=== PATIENT | female | born 1965 | race Caucasian/White ===

== ENCOUNTER → 2020-12-22 | Outpatient (CLI) | payer OTHER ==
[2020-12-22 09:35] LABS: BASOPHILS % (AUTO) 1 % (0-1); EOSINOPHILS % (AUTO) 2 % (1-7); LYMPHOCYTES % (AUTO) 8 % (22-44); MEAN CORPUSCULAR HEMOGLOBIN 24.7 pg (27.0-34.8); MEAN CORPUSCULAR HGB CONC 33.1 g/dL (32.4-35.8); MONOCYTES % (AUTO) 4 % (2-9); NEUTROPHILS % (AUTO) 85 % (42-75); PLATELET COUNT 472 x10^3/uL (130-400); RED BLOOD COUNT 4.46 x10^6/uL (3.82-5.3); RED CELL DISTRIBUTION WIDTH 16.9 % (9.6-15.2)
[2020-12-22 09:40] LABS: MD NO
[2020-12-22 09:45] LABS: ALANINE AMINOTRANSFERASE 14 U/L (12-78); ALBUMIN 3.2 g/dL (3.4-5.0); ANION GAP 6 mmol/L (5-15); CALCIUM 9.6 mg/dL (8.5-10.1); CHLORIDE 104 mmol/L (98-107); CREATININE 0.77 mg/dL (0.55-1.02)
[2020-12-22 09:46] LABS: INTERNATIONAL NORMALIZED RATIO 0.95 (0.93-1.1); PROTHROMBIN TIME 10.2 Seconds (9.6-11.5)
[2020-12-22 09:47] LABS: ALKALINE PHOSPHATASE 80 U/L (45-117); BILIRUBIN,TOTAL 0.6 mg/dL (0.2-1.0); TOTAL PROTEIN 7.5 g/dL (6.4-8.2)
== END | disposition home or self-care (01) ==
LOC: STAR 07:53
PROVIDERS: ATTEND Specialist
DX: Z01.818 Encounter for other preprocedural examination (principal); N92.4 Excessive bleeding in the premenopausal period; R19.00 Intra-abdominal and pelvic swelling, mass and lump, unspecified site; Z20.822 Contact with and (suspected) exposure to COVID-19
CPT/HCPCS: 36415; 71046; 80053; 85025; 85610; 85730; 86304; 93005; U0003; U0005

== ENCOUNTER 2020-12-26 09:26 | Day surgery (SDC) | payer OTHER ==
[~2020-12-26] VITALS: Ht 167.6 cm; Wt 80.6 kg
[2020-12-26 10:29] VITALS: BP 116/73
[2020-12-26] MEDS ORDERED: CHLORHEXIDINE 15 ML UDC PO ONE (10:30)
[2020-12-26] MEDS ORDERED: CEFOTETAN PMX 2GM/50ML 50 ML IVPB ONE (10:30)
[2020-12-26] MEDS ORDERED: LACTATED RINGERS 1,000 ML IV SCH (10:30)
[2020-12-26] MEDS ORDERED: MIDAZOLAM 1 MG/ML, 2ML ONE (12:01)
[2020-12-26] MEDS ORDERED: PROPOFOL 50 ML ONE (12:01)
[2020-12-26] MEDS ORDERED: ONDANSETRON 2MG/ML, 2ML ONE (12:01)
[2020-12-26] MEDS ORDERED: KETOROLAC 30 MG/1 ML ONE (12:01)
[2020-12-26] MEDS ORDERED: FENTANYL PF 250 MCG/5ML ONE (12:01)
[2020-12-26] MEDS ORDERED: PROPOFOL 10 MG/ML, 20ML ONE (12:01)
[2020-12-26] MEDS ORDERED: DEXAMETHASONE 4 MG/ML, 1ML ONE (12:01)
[2020-12-26] MEDS ORDERED: DIAZEPAM 5 MG/ML, 2ML IVPush PRN (13:00)
[2020-12-26] MEDS ORDERED: DIPHENHYDRAMINE 50 MG/ML, 1ML IVPush PRN (13:00)
[2020-12-26] MEDS ORDERED: EPHEDRINE 50 MG/ML, 1ML IM PRN (13:00)
[2020-12-26] MEDS ORDERED: morphine SULFATE 10 MG/ML, 1ML IVPush PRN (13:00)
[2020-12-26] MEDS ORDERED: FENTANYL PF 100 MCG/2ML IV PRN (13:00)
[2020-12-26] MEDS ORDERED: MEPERIDINE/PF 25MG/0.5ML IVPush PRN (13:00)
[2020-12-26] MEDS ORDERED: MIDAZOLAM 1 MG/ML, 2ML IV PRN (13:00)
[2020-12-26] MEDS ORDERED: PROMETHAZINE 25 MG/ML, 1ML IVPush PRN (13:00)
[2020-12-26] MEDS ORDERED: ONDANSETRON 2MG/ML, 2ML IVPush PRN (13:00)
[2020-12-26] MEDS ORDERED: EPHEDRINE 50 MG/ML, 1ML IVPush PRN (13:00)
[2020-12-26] MEDS ORDERED: ACETAMINOPHEN 325 MG TABLET PO PRN (13:00)
[2020-12-26] MEDS ORDERED: LABETALOL 5MG/ML, 20ML IV PRN (13:00)
[2020-12-26] MEDS ORDERED: OXYcodone 5 MG/5 ML ORAL.SOL UDC PO PRN (13:00)
[2020-12-26] MEDS ORDERED: ACETAMINOPHEN 650 MG/20.3 ML UDC ONE (13:35)
== END 2020-12-26 14:50 | disposition home or self-care (01) ==
LOC: OUT 09:26
PROVIDERS: ATTEND Specialist
DX: N93.9 Abnormal uterine and vaginal bleeding, unspecified (principal); Z79.899 Other long term (current) drug therapy; Z98.51 Tubal ligation status; Z80.8 Family history of malignant neoplasm of other organs or systems
CPT/HCPCS: 57500; 88305; J1100; J1885; J2250; J2405; J2704; J3010; J7120

== ENCOUNTER 2021-01-08 15:03 | Inpatient (IN) | payer OTHER ==
[~2021-01-08] VITALS: Ht 167.6 cm; Wt 79.3 kg
[2021-01-08 15:41] VITALS: BP 129/80
[2021-01-08] MEDS ORDERED: ONDANSETRON 2MG/ML, 2ML IVPush PRN (17:00)
[2021-01-08] MEDS ORDERED: GOLYTELY 4,000ML ORAL.SOL PO ONE (17:00)
[2021-01-08] MEDS: MORPHINE SULFATE 4 MG/ML, 1ML IVPush PRN (17:23)
[2021-01-08 17:33] LABS: BASOPHILS % (AUTO) 0 % (0-1); EOSINOPHILS % (AUTO) 2 % (1-7); LYMPHOCYTES % (AUTO) 10 % (22-44); MEAN CORPUSCULAR HEMOGLOBIN 23.8 pg (27.0-34.8); MEAN CORPUSCULAR HGB CONC 32.8 g/dL (32.4-35.8); MEAN PLATELET VOLUME 6.4 fL (7.4-10.4); MONOCYTES % (AUTO) 6 % (2-9); NEUTROPHILS % (AUTO) 82 % (42-75); PLATELET COUNT 459 x10^3/uL (130-400); RED BLOOD COUNT 3.69 x10^6/uL (3.82-5.3); RED CELL DISTRIBUTION WIDTH 17.6 % (9.6-15.2)
[2021-01-08 17:40] LABS: ALANINE AMINOTRANSFERASE 15 U/L (12-78); ALBUMIN 2.7 g/dL (3.4-5.0); ANION GAP 8 mmol/L (5-15); CALCIUM 10.3 mg/dL (8.5-10.1); CHLORIDE 108 mmol/L (98-107); CREATININE 0.97 mg/dL (0.55-1.02); INTERNATIONAL NORMALIZED RATIO 0.99 (0.93-1.1); PROTHROMBIN TIME 10.6 Seconds (9.6-11.5)
[2021-01-08 17:42] LABS: ALKALINE PHOSPHATASE 93 U/L (45-117); BILIRUBIN,TOTAL 0.3 mg/dL (0.2-1.0)
[2021-01-08 18:30] VITALS: BP 118/77
[2021-01-08 18:36] LABS: ANISOCYTOSIS 1+; MICROCYTOSIS 1+
[2021-01-08 18:40] LABS: <PLATELET ESTIMATE> INCREASED
[2021-01-08 18:41] LABS: SMALL PLATELETS 1+
[2021-01-08] MEDS: POTASSIUM CHLORIDE 20 MEQ in SODIUM CHLORIDE 0.45% 1,000 ML IV SCH (23:31)
[2021-01-09] MEDS: MORPHINE SULFATE 4 MG/ML, 1ML IVPush PRN (01:39)
[2021-01-09 01:53] VITALS: BP 104/67
[2021-01-09 06:37] VITALS: BP 116/77
[2021-01-09] MEDS: POTASSIUM CHLORIDE 20 MEQ in SODIUM CHLORIDE 0.45% 1,000 ML IV SCH (08:47)
[2021-01-09] MEDS ORDERED: CHLORHEXIDINE 15 ML UDC ONE (12:03)
[2021-01-09] MEDS ORDERED: CHLORHEXIDINE 15 ML UDC PO ONE (12:30)
[2021-01-09] MEDS ORDERED: FENTANYL PF 100 MCG/2ML ONE ×5 (12:48→15:26)
[2021-01-09] MEDS ORDERED: MIDAZOLAM 1 MG/ML, 2ML ONE (12:48)
[2021-01-09] MEDS ORDERED: DEXAMETHASONE 4 MG/ML, 1ML ONE (12:52)
[2021-01-09] MEDS ORDERED: ALBUTEROL SULFATE 200 PUFFS/8.5 GR INH ONE (12:52)
[2021-01-09] MEDS ORDERED: PHENYLEPHRINE 10 MG/ML ONE (12:52)
[2021-01-09] MEDS ORDERED: ALBUMIN HUMAN 5% 500 ML ONE (13:53)
[2021-01-09] MEDS ORDERED: HEPARIN 1,000 UNITS/ML, 10ML ONE (13:54)
[2021-01-09] MEDS ORDERED: CEFAZOLIN 1,000 MG ONE ×2 (14:09)
[2021-01-09] MEDS ORDERED: PROPOFOL 10 MG/ML, 20ML ONE (14:09)
[2021-01-09] MEDS ORDERED: ROCURONIUM 10MG/ML,5ML ONE ×2 (14:09)
[2021-01-09] MEDS ORDERED: OXYcodone 5 MG/5 ML ORAL.SOL UDC PO PRN (14:30)
[2021-01-09] MEDS ORDERED: FENTANYL PF 100 MCG/2ML IV PRN (14:30)
[2021-01-09] MEDS ORDERED: LABETALOL 5MG/ML, 20ML IV PRN (14:30)
[2021-01-09] MEDS ORDERED: PROMETHAZINE 25 MG/ML, 1ML IVPush PRN (14:30)
[2021-01-09] MEDS ORDERED: ONDANSETRON 2MG/ML, 2ML IVPush PRN ×2 (14:30→16:00)
[2021-01-09] MEDS ORDERED: HYDROmorphone 1 MG/ML, 1ML INJ IVPush PRN (14:30)
[2021-01-09] MEDS ORDERED: hydrALAzine 20 MG/ML, 1ML IV PRN (14:30)
[2021-01-09] MEDS ORDERED: MEPERIDINE/PF 25MG/0.5ML IVPush PRN (14:30)
[2021-01-09] MEDS ORDERED: ONDANSETRON 2MG/ML, 2ML ONE ×2 (14:41→15:25)
[2021-01-09] MEDS ORDERED: OXYcodone 5 MG/5 ML ORAL.SOL UDC ONE (15:26)
[2021-01-09 19:19] VITALS: BP 97/62
[2021-01-10] MEDS: POTASSIUM CHLORIDE 20 MEQ in SODIUM CHLORIDE 0.45% 1,000 ML IV SCH ×3 (00:35→21:35)
[2021-01-10 02:03] VITALS: BP 92/59
[2021-01-10 06:59] VITALS: BP 90/62
[2021-01-10] MEDS ORDERED: PROCHLORPERAZINE 5 MG/ML, 2ML IVPush PRN (09:00)
[2021-01-10] MEDS ORDERED: DIPHENHYDRAMINE 50 MG/ML, 1ML IVPush PRN (09:00)
[2021-01-10] MEDS ORDERED: ACETAMINOPHEN 325 MG TABLET PO PRN (09:00)
[2021-01-10 09:34] LABS: BASOPHILS % (AUTO) 0 % (0-1); EOSINOPHILS % (AUTO) 0 % (1-7); LYMPHOCYTES % (AUTO) 4 % (22-44); MEAN CORPUSCULAR HEMOGLOBIN 25.5 pg (27.0-34.8); MEAN CORPUSCULAR HGB CONC 33.8 g/dL (32.4-35.8); MEAN PLATELET VOLUME 6.5 fL (7.4-10.4); MONOCYTES % (AUTO) 4 % (2-9); NEUTROPHILS % (AUTO) 92 % (42-75); PLATELET COUNT 389 x10^3/uL (130-400); RED BLOOD COUNT 3.69 x10^6/uL (3.82-5.3); RED CELL DISTRIBUTION WIDTH 18.2 % (9.6-15.2)
[2021-01-10 09:45] LABS: ANION GAP 8 mmol/L (5-15); CALCIUM 7.9 mg/dL (8.5-10.1); CHLORIDE 109 mmol/L (98-107); CREATININE 0.73 mg/dL (0.55-1.02)
[2021-01-10 13:55] VITALS: BP 99/61
[2021-01-10 18:42] VITALS: BP 99/56
[2021-01-10] MEDS: FAMOTIDINE 20 MG/2 ML IVPush SCH (20:15)
[2021-01-11 00:54] VITALS: BP 91/55
[2021-01-11 07:24] VITALS: BP 99/64
[2021-01-11] MEDS: FAMOTIDINE 20 MG/2 ML IVPush SCH ×2 (08:38→20:25)
[2021-01-11] MEDS: POTASSIUM CHLORIDE 20 MEQ in SODIUM CHLORIDE 0.45% 1,000 ML IV SCH ×2 (08:38→19:28)
[2021-01-11 13:10] VITALS: BP 95/59
[2021-01-11 18:47] VITALS: BP 93/63
[2021-01-12 01:01] VITALS: BP 99/61
[2021-01-12] MEDS: POTASSIUM CHLORIDE 20 MEQ in SODIUM CHLORIDE 0.45% 1,000 ML IV SCH ×2 (04:34→15:43)
[2021-01-12 06:48] VITALS: BP 100/65
[2021-01-12] MEDS: FAMOTIDINE 20 MG/2 ML IVPush SCH ×2 (08:55→20:18)
[2021-01-12 13:29] VITALS: BP 96/61
[2021-01-12 19:37] VITALS: BP 100/62
[2021-01-13 00:42] VITALS: BP 103/64
[2021-01-13] MEDS: POTASSIUM CHLORIDE 20 MEQ in SODIUM CHLORIDE 0.45% 1,000 ML IV SCH ×3 (00:48→22:50)
[2021-01-13 05:19] LABS: BASOPHILS % (AUTO) 0 % (0-1); EOSINOPHILS % (AUTO) 2 % (1-7); LYMPHOCYTES % (AUTO) 11 % (22-44); MEAN CORPUSCULAR HEMOGLOBIN 25.6 pg (27.0-34.8); MEAN CORPUSCULAR HGB CONC 33.2 g/dL (32.4-35.8); MEAN PLATELET VOLUME 6.7 fL (7.4-10.4); MONOCYTES % (AUTO) 7 % (2-9); NEUTROPHILS % (AUTO) 80 % (42-75); PLATELET COUNT 294 x10^3/uL (130-400); RED BLOOD COUNT 2.93 x10^6/uL (3.82-5.3); RED CELL DISTRIBUTION WIDTH 18.5 % (9.6-15.2)
[2021-01-13 05:25] LABS: ANION GAP 4 mmol/L (5-15); CALCIUM 7.6 mg/dL (8.5-10.1); CHLORIDE 108 mmol/L (98-107)
[2021-01-13 05:26] LABS: CREATININE 0.48 mg/dL (0.55-1.02)
[2021-01-13 06:55] VITALS: BP 102/66
[2021-01-13] MEDS: FAMOTIDINE 20 MG/2 ML IVPush SCH ×2 (09:18→20:59)
[2021-01-13 12:15] VITALS: BP 97/64
[2021-01-13 19:20] VITALS: BP 113/68
[2021-01-14 03:30] VITALS: BP 107/63
[2021-01-14 05:17] LABS: BASOPHILS % (AUTO) 0 % (0-1); EOSINOPHILS % (AUTO) 1 % (1-7); LYMPHOCYTES % (AUTO) 7 % (22-44); MEAN CORPUSCULAR HEMOGLOBIN 25.7 pg (27.0-34.8); MEAN CORPUSCULAR HGB CONC 33.6 g/dL (32.4-35.8); MEAN PLATELET VOLUME 6.9 fL (7.4-10.4); MONOCYTES % (AUTO) 6 % (2-9); NEUTROPHILS % (AUTO) 86 % (42-75); PLATELET COUNT 327 x10^3/uL (130-400); RED BLOOD COUNT 3.23 x10^6/uL (3.82-5.3); RED CELL DISTRIBUTION WIDTH 18.6 % (9.6-15.2)
[2021-01-14 05:24] LABS: ANION GAP 6 mmol/L (5-15); CALCIUM 7.7 mg/dL (8.5-10.1); CHLORIDE 103 mmol/L (98-107)
[2021-01-14 05:25] LABS: CREATININE 0.45 mg/dL (0.55-1.02)
[2021-01-14 07:15] VITALS: BP 103/65
[2021-01-14] MEDS: FAMOTIDINE 20 MG/2 ML IVPush SCH ×2 (08:20→20:57)
[2021-01-14] MEDS: POTASSIUM CHLORIDE 20 MEQ in SODIUM CHLORIDE 0.45% 1,000 ML IV SCH (09:54)
[2021-01-14] MEDS ORDERED: OXYcodone/APAP 5/325MG TABLET PO PRN (11:30)
[2021-01-14] MEDS: KETOROLAC 30 MG/1 ML IVPush SCH ×3 (12:40→23:37)
[2021-01-14 12:47] VITALS: BP 126/77
[2021-01-14] MEDS ORDERED: POTASSIUM CHLORIDE 20 MEQ in SODIUM CHLORIDE 0.45% 1,000 ML IV SCH (17:00)
[2021-01-14 18:19] VITALS: BP 110/57
[2021-01-15 01:09] VITALS: BP 106/69
[2021-01-15] MEDS: KETOROLAC 30 MG/1 ML IVPush SCH (05:08)
[2021-01-15] MEDS ORDERED: KETOROLAC 30 MG/1 ML IVPush PRN (08:00)
[2021-01-15 08:30] VITALS: BP 109/66
[2021-01-15] MEDS: FAMOTIDINE 20 MG/2 ML IVPush SCH (09:10)
[2021-01-15 13:55] VITALS: BP 113/68
[2021-01-15] MEDS ORDERED: OXYC1TAB14 PO (14:06)
== END 2021-01-15 18:38 | disposition home or self-care (01) | DRG 737 ==
LOC: 4NW 15:11
PROVIDERS: ADMIT Specialist; ATTEND Specialist
PROC: 0UT20ZZ Resection of Bilateral Ovaries, Open Approach (ICD-10-PCS; 2021-01-09)
PROC: 0UT70ZZ Resection of Bilateral Fallopian Tubes, Open Approach (ICD-10-PCS; 2021-01-09)
PROC: 30233N1 Transfusion of Nonautologous Red Blood Cells into Peripheral Vein, Percutaneous Approach (ICD-10-PCS; 2021-01-09)
PROC: 0DBU0ZZ Excision of Omentum, Open Approach (ICD-10-PCS; 2021-01-09)
PROC: 0UT90ZZ Resection of Uterus, Open Approach (ICD-10-PCS; principal; 2021-01-09 13:30)
DX: C56.1 Malignant neoplasm of right ovary (principal); R18.8 Other ascites; C54.1 Malignant neoplasm of endometrium; D64.9 Anemia, unspecified; Z85.6 Personal history of leukemia; Z20.822 Contact with and (suspected) exposure to COVID-19; C56.2 Malignant neoplasm of left ovary
CPT/HCPCS: 36415; 71045; 80048; 80053; 83735; 85025; 85610; 85730; 86850; 86900; 86923; 87635; 88112; 88305; 88307; 88331; 93005; G0378; J0690; J1100; J1644; J1885; J2250; J2270; J2405; J2704; J3010; J3480; P9045; C1765; J2370; P9016

== ENCOUNTER 2021-02-14 09:07 | Inpatient (IN) | payer OTHER ==
[~2021-02-14] VITALS: Ht 167.6 cm; Wt 79.0 kg
[~2021-02-14 09:07] MED LIST: OXYC1TAB14 PO
[2021-02-14] MEDS ORDERED: OMNIPAQUE 350 MG/ML, 100ML BOTTLE ONE (11:23)
[2021-02-14] MEDS ORDERED: ONDANSETRON ODT 4 MG PO ONE (18:00)
[2021-02-14] MEDS ORDERED: OXYcodone/APAP 5/325MG TABLET PO PRN ×2 (18:00→19:30)
[2021-02-14 19:00] VITALS: BP 105/65
[2021-02-14] MEDS ORDERED: PLEASE ENTER HEIGHT AND WEIGHT MC SCH (19:00)
[2021-02-14] MEDS ORDERED: ACETAMINOPHEN 325 MG TABLET PO PRN (19:30)
[2021-02-14] MEDS: SODIUM CHLORIDE 0.45% 1,000 ML IV SCH (20:21)
[2021-02-14 21:09] LABS: INTERNATIONAL NORMALIZED RATIO 1.15 (0.93-1.1); PROTHROMBIN TIME 12.2 Seconds (9.6-11.5)
[2021-02-15 01:10] VITALS: BP 103/67
[2021-02-15] MEDS: SODIUM CHLORIDE 0.45% 1,000 ML IV SCH ×2 (05:09→14:17)
[2021-02-15 07:54] VITALS: BP 107/68
[2021-02-15] MEDS ORDERED: LIDOCAINE 1%, 20ML ONE (14:30)
[2021-02-15] MEDS ORDERED: MIDAZOLAM 1 MG/ML, 5ML ONE ×2 (14:34)
[2021-02-15] MEDS ORDERED: FLUMAZENIL 0.1 MG/1 ML, 5ML ONE (14:34)
[2021-02-15] MEDS ORDERED: FENTANYL PF 100 MCG/2ML ONE (14:34)
[2021-02-15] MEDS ORDERED: NALOXONE 1 MG/ML, 2ML ONE (14:35)
[2021-02-15 16:00] VITALS: BP 98/63
[2021-02-15 18:41] VITALS: BP 97/61
[2021-02-15] MEDS ORDERED: ONDANSETRON 2MG/ML, 2ML IVPush PRN (19:30)
[2021-02-15] MEDS ORDERED: MORPHINE SULFATE 4 MG/ML, 1ML IVPush PRN (19:30)
[2021-02-15] MEDS: IBUPROFEN 200 MG TABLET PO PRN (20:00)
[2021-02-15] MEDS ORDERED: MAGNESIUM HYDROXIDE 8%, 30ML UDC PO PRN (20:30)
[2021-02-15] MEDS: PIPERACILLIN/TAZO 3.375 GM in DEXTROSE 5% 50 ML IV SCH (20:54)
[2021-02-16 01:30] VITALS: BP 99/64
[2021-02-16] MEDS: SODIUM CHLORIDE 0.45% 1,000 ML IV SCH ×2 (01:40→17:46)
[2021-02-16] MEDS: PIPERACILLIN/TAZO 3.375 GM in DEXTROSE 5% 50 ML IV SCH ×4 (03:07→20:31)
[2021-02-16 05:55] LABS: BASOPHILS % (AUTO) 1 % (0-1); EOSINOPHILS % (AUTO) 1 % (1-7); LYMPHOCYTES % (AUTO) 20 % (22-44); MEAN CORPUSCULAR HEMOGLOBIN 24.2 pg (27.0-34.8); MEAN CORPUSCULAR HGB CONC 31.6 g/dL (32.4-35.8); MEAN PLATELET VOLUME 6.3 fL (7.4-10.4); MONOCYTES % (AUTO) 5 % (2-9); NEUTROPHILS % (AUTO) 74 % (42-75); PLATELET COUNT 281 x10^3/uL (130-400); RED BLOOD COUNT 2.56 x10^6/uL (3.82-5.3); RED CELL DISTRIBUTION WIDTH 24.9 % (9.6-15.2)
[2021-02-16 05:57] LABS: ALBUMIN 1.9 g/dL (3.4-5.0); ANION GAP 3 mmol/L (5-15); CALCIUM 7.8 mg/dL (8.5-10.1); CHLORIDE 108 mmol/L (98-107)
[2021-02-16 06:02] LABS: ALANINE AMINOTRANSFERASE 8 U/L (12-78); ALKALINE PHOSPHATASE 68 U/L (45-117); BILIRUBIN,TOTAL 0.9 mg/dL (0.2-1.0); CREATININE 0.55 mg/dL (0.55-1.02); TOTAL PROTEIN 5.7 g/dL (6.4-8.2)
[2021-02-16 06:33] LABS: ANISOCYTOSIS 2+
[2021-02-16 06:34] LABS: <PLATELET ESTIMATE> ADEQUATE; <PLT MORPHOLOGY> NORMAL PLT MORPH; OVALOCYTES 1+; POLYCHROMASIA 1+
[2021-02-16 06:35] LABS: HYPOCHROMIA 1+
[2021-02-16 06:36] LABS: MICROCYTOSIS 1+
[2021-02-16] MEDS ORDERED: POTASSIUM CHLORIDE 40 MEQ in SODIUM CHLORIDE 0.9% 500 ML IV ONE (07:00)
[2021-02-16 07:27] VITALS: BP 100/63
[2021-02-16 13:39] VITALS: BP 95/58
[2021-02-16] MEDS ORDERED: DIPHENHYDRAMINE 25 MG CAPSULE PO ONE (17:00)
[2021-02-16] MEDS ORDERED: ACETAMINOPHEN 325 MG TABLET PO ONE (17:00)
[2021-02-16 20:09] VITALS: BP 104/67
[2021-02-16 21:46] VITALS: BP 112/67
[2021-02-16 22:13] VITALS: BP 103/60
[2021-02-17] VITALS (10 sets, daily range): BP systolic 108–121; BP diastolic 60–78
[2021-02-17] MEDS: PIPERACILLIN/TAZO 3.375 GM in DEXTROSE 5% 50 ML IV SCH ×4 (03:31→20:47)
[2021-02-17 05:49] LABS: ANION GAP 3 mmol/L (5-15); CALCIUM 7.9 mg/dL (8.5-10.1); CHLORIDE 108 mmol/L (98-107); CREATININE 0.52 mg/dL (0.55-1.02)
[2021-02-17 05:56] LABS: BASOPHILS % (AUTO) 1 % (0-1); EOSINOPHILS % (AUTO) 1 % (1-7); LYMPHOCYTES % (AUTO) 23 % (22-44); MEAN CORPUSCULAR HEMOGLOBIN 25.8 pg (27.0-34.8); MEAN CORPUSCULAR HGB CONC 31.7 g/dL (32.4-35.8); MEAN PLATELET VOLUME 6.4 fL (7.4-10.4); MONOCYTES % (AUTO) 6 % (2-9); NEUTROPHILS % (AUTO) 70 % (42-75); PLATELET COUNT 277 x10^3/uL (130-400); RED BLOOD COUNT 3.52 x10^6/uL (3.82-5.3); RED CELL DISTRIBUTION WIDTH 23.2 % (9.6-15.2)
[2021-02-17 06:46] LABS: POLYCHROMASIA 1+
[2021-02-17 06:48] LABS: ANISOCYTOSIS 2+
[2021-02-17 06:49] LABS: <PLATELET ESTIMATE> ADEQUATE; <PLT MORPHOLOGY> NORMAL PLT MORPH; OVALOCYTES 1+
[2021-02-17] MEDS: SODIUM CHLORIDE 0.45% 1,000 ML IV SCH ×2 (11:24→20:47)
[2021-02-18 00:37] VITALS: BP 117/67
[2021-02-18] MEDS: PIPERACILLIN/TAZO 3.375 GM in DEXTROSE 5% 50 ML IV SCH ×4 (03:09→21:09)
[2021-02-18 05:41] LABS: BASOPHILS % (AUTO) 1 % (0-1); EOSINOPHILS % (AUTO) 2 % (1-7); LYMPHOCYTES % (AUTO) 31 % (22-44); MEAN CORPUSCULAR HEMOGLOBIN 26.4 pg (27.0-34.8); MEAN CORPUSCULAR HGB CONC 32.6 g/dL (32.4-35.8); MEAN PLATELET VOLUME 6.5 fL (7.4-10.4); MONOCYTES % (AUTO) 6 % (2-9); NEUTROPHILS % (AUTO) 60 % (42-75); PLATELET COUNT 262 x10^3/uL (130-400); RED BLOOD COUNT 3.28 x10^6/uL (3.82-5.3)
[2021-02-18 07:46] VITALS: BP 110/71
[2021-02-18] MEDS: SODIUM CHLORIDE 0.45% 1,000 ML IV SCH ×2 (09:07→17:59)
[2021-02-18] MEDS ORDERED: DIPHENHYDRAMINE 25 MG CAPSULE PO PRN (12:00)
[2021-02-18] MEDS ORDERED: MELATONIN 5 MG TABLET PO PRN (12:00)
[2021-02-18 12:05] VITALS: BP 113/71
[2021-02-18 19:34] VITALS: BP 129/83
[2021-02-18] MEDS: IBUPROFEN 200 MG TABLET PO PRN (21:09)
[2021-02-19 02:38] VITALS: BP 113/67
[2021-02-19] MEDS: PIPERACILLIN/TAZO 3.375 GM in DEXTROSE 5% 50 ML IV SCH ×4 (03:14→20:53)
[2021-02-19 04:47] LABS: BASOPHILS % (AUTO) 1 % (0-1); EOSINOPHILS % (AUTO) 3 % (1-7); LYMPHOCYTES % (AUTO) 39 % (22-44); MEAN CORPUSCULAR HGB CONC 31.9 g/dL (32.4-35.8); MEAN PLATELET VOLUME 6.2 fL (7.4-10.4); MONOCYTES % (AUTO) 6 % (2-9); NEUTROPHILS % (AUTO) 51 % (42-75); PLATELET COUNT 250 x10^3/uL (130-400); RED BLOOD COUNT 3.21 x10^6/uL (3.82-5.3); RED CELL DISTRIBUTION WIDTH 24.3 % (9.6-15.2)
[2021-02-19 05:00] LABS: ANION GAP 3 mmol/L (5-15); CALCIUM 7.9 mg/dL (8.5-10.1); CHLORIDE 110 mmol/L (98-107)
[2021-02-19 05:02] LABS: CREATININE 0.45 mg/dL (0.55-1.02)
[2021-02-19] MEDS: SODIUM CHLORIDE 0.45% 1,000 ML IV SCH ×2 (05:33→15:42)
[2021-02-19 06:25] VITALS: BP 121/75
[2021-02-19] MEDS ORDERED: OMNIPAQUE 350 MG/ML, 100ML BOTTLE ONE (10:47)
[2021-02-19 14:32] VITALS: BP 117/70
[2021-02-19 18:37] VITALS: BP 121/76
[2021-02-19 19:57] LABS: MICROSCOPIC AUTO
[2021-02-20 01:46] VITALS: BP 123/79
[2021-02-20] MEDS: SODIUM CHLORIDE 0.45% 1,000 ML IV SCH ×3 (02:02→21:28)
[2021-02-20] MEDS: PIPERACILLIN/TAZO 3.375 GM in DEXTROSE 5% 50 ML IV SCH ×4 (03:01→21:28)
[2021-02-20 06:24] VITALS: BP 132/78
[2021-02-20 15:08] VITALS: BP 114/71
[2021-02-20 18:47] VITALS: BP 120/77
[2021-02-21 01:18] VITALS: BP 143/76
[2021-02-21] MEDS: PIPERACILLIN/TAZO 3.375 GM in DEXTROSE 5% 50 ML IV SCH ×3 (03:58→13:51)
[2021-02-21 05:14] LABS: BASOPHILS % (AUTO) 1 % (0-1); EOSINOPHILS % (AUTO) 2 % (1-7); LYMPHOCYTES % (AUTO) 40 % (22-44); MEAN CORPUSCULAR HEMOGLOBIN 26.5 pg (27.0-34.8); MEAN CORPUSCULAR HGB CONC 32.4 g/dL (32.4-35.8); MEAN PLATELET VOLUME 6.7 fL (7.4-10.4); MONOCYTES % (AUTO) 6 % (2-9); NEUTROPHILS % (AUTO) 52 % (42-75); PLATELET COUNT 234 x10^3/uL (130-400); RED BLOOD COUNT 3.11 x10^6/uL (3.82-5.3); RED CELL DISTRIBUTION WIDTH 25.7 % (9.6-15.2)
[2021-02-21 05:34] LABS: ANION GAP 2 mmol/L (5-15); CALCIUM 8.3 mg/dL (8.5-10.1); CHLORIDE 112 mmol/L (98-107); CREATININE 0.41 mg/dL (0.55-1.02)
[2021-02-21 06:44] VITALS: BP 143/76
[2021-02-21] MEDS: SODIUM CHLORIDE 0.45% 1,000 ML IV SCH (08:27)
[2021-02-21 12:42] VITALS: BP 132/73
[2021-02-21] MEDS ORDERED: IBUP-1902 PO (13:58)
[2021-02-21] MEDS ORDERED: METR500T PO (13:58)
[2021-02-21] MEDS ORDERED: LEVO750T6 PO (13:58)
== END 2021-02-21 17:44 | disposition home or self-care (01) | DRG 371 ==
LOC: RAD 09:07 → 4NW 17:57
PROVIDERS: ADMIT Obstetrics & Gynecology; ATTEND Obstetrics & Gynecology
PROC: 0D9W30Z Drainage of Peritoneum with Drainage Device, Percutaneous Approach (ICD-10-PCS; principal; 2021-02-15)
PROC: 30233N1 Transfusion of Nonautologous Red Blood Cells into Peripheral Vein, Percutaneous Approach (ICD-10-PCS; 2021-02-16)
DX: K65.1 Peritoneal abscess (principal); E43 Unspecified severe protein-calorie malnutrition; D64.9 Anemia, unspecified; K59.00 Constipation, unspecified; B96.4 Proteus (mirabilis) (morganii) as the cause of diseases classified elsewhere; N73.9 Female pelvic inflammatory disease, unspecified; Z85.42 Personal history of malignant neoplasm of other parts of uterus; Z87.42 Personal history of other diseases of the female genital tract; Z68.28 Body mass index [BMI] 28.0-28.9, adult; Z79.899 Other long term (current) drug therapy
CPT/HCPCS: 36415; J3490; 49405; 49406; 74177; 80048; 80053; 81001; 85025; 85610; 85730; 86850; 86870; 86900; 86902; 86922; 86923; 87070; 87075; 87076; 87077; 87147; 87186; 87205; 99156; G0378; J2250; J2543; J3010; J3480; Q0162; Q9967; C1729; C1769; J2310; J7040; P9016; Q0163

== ENCOUNTER → 2021-03-13 | Outpatient (CLI) | payer OTHER ==
[~2021-03-13] MED LIST changes: +IBUP-1902 PO; +LEVO750T6 PO; +METR500T PO; +OMNIPAQUE 350 MG/ML, 100ML BOTTLE ONE
== END | disposition home or self-care (01) ==
LOC: RAD 11:45
PROVIDERS: ATTEND Specialist
DX: C54.1 Malignant neoplasm of endometrium (principal); C79.62 Secondary malignant neoplasm of left ovary; K65.1 Peritoneal abscess; N13.30 Unspecified hydronephrosis; R59.0 Localized enlarged lymph nodes; R19.00 Intra-abdominal and pelvic swelling, mass and lump, unspecified site; R10.2 Pelvic and perineal pain; N95.0 Postmenopausal bleeding; Z87.42 Personal history of other diseases of the female genital tract
CPT/HCPCS: 74177; Q9967